=== PATIENT | female | born 1955 | race African-American/Black ===

== ENCOUNTER 2019-04-11 14:03 | Inpatient (IN) ==
[2019-04-11] MEDS ORDERED: SODIUM CHLORIDE 0.9% 1,000 ML IV STA (14:25)
[2019-04-11] MEDS ORDERED: ONDANSETRON 4 MG/2 ML VIAL IV STA (14:25)
[2019-04-11] MEDS ORDERED: HYDROmorphone 2 MG/1 ML VIAL IV STA (14:25)
[2019-04-11 14:48] LABS: Apearance,Urine CLEAR (Clear); Bilirubin,Urine Negative (Negative); Blood, Urine Negative (Negative); Glucose,Urine (UA) Negative (Negative); Ketones,Urine Negative (Negative); Nitrite,Urine Negative (Negative); Protein,Urine Negative; Squamous Epithelial Cell,Urine Occasional /HPF (0-10); Urine Color Yellow (Yellow); Urine Specific Gravity 1.017 (1.001-1.035); Urine Urobilinogen < 2.0 EU/DL (0.2-1.0); WBC,Urine <1 /HPF (0-6)
[2019-04-11 14:54] LABS: Barbiturates Screen,Urine Negative (Negative); Benzodiazepines Screen,Urine Negative (Negative); Cannabinoid Screen,Urine Negative (Negative); Opiate Screen,Urine Negative (Negative); Phencyclidine Screen,Urine Negative (Negative)
[2019-04-11 15:10] LABS: Albumin 3.4 G/DL (3.4-5.0); Bilirubin,Total 0.6 MG/DL (0.2-1.0); Calcium 8.9 MG/DL (8.5-10.1); Osmolality,Calculated 280.4 MOS/KG (273-304); Total Protein 7.3 G/DL (6.4-8.3)
[2019-04-11 15:16] LABS: Basophils % 0.2 % (0.0-0.8); Eosinophils % 0.3 % (0.00-10.9); Hematocrit 37.7 VOL% (35.7-47.0); Hemoglobin 13.2 GM/DL (12.0-16.0); Immature Granulocytes % 0.3 %; Immature Granulocytes Absolute 0.04 #; Lymphocytes # 1.9 10*3/uL (1.4-4.0); Mean Corpuscular Volume 85.1 FL (87-102); Mean Platelet Volume 10.2 FL (9.6-12.0); Monocytes % 1.9 % (1.7-12.7); NRBC # 0.03 10*3/uL; Neutrophils % 83.3 % (38.7-73.9); Platelet Count 289 T/CUMM (130-400); Red Blood Count 4.43 MC/CUMM (3.8-5.5); Red Cell Distribution Width 16.6 % (9.3-17.3); White Blood Count 13.8 T/CUMM (4-12)
[2019-04-11 15:22] LABS: PT Patient Result 10.5 SECS (9.6-12.2); Partial Thromboplastin Time < 21.0 SECS (20.8-36.0)
[2019-04-11] MEDS ORDERED: METOCLOPRAMIDE 10 MG/2 ML VIAL IV STA (16:02)
[2019-04-11] MEDS ORDERED: PANTOPRAZOLE 40 MG VIAL IV STA (16:03)
[2019-04-11] MEDS ORDERED: AMPICILLIN/SULBACTAM 3,000 MG in SODIUM CHLORIDE 0.9% 100 ML IV STA (17:04)
[2019-04-11] MEDS ORDERED: PIPERACILLIN/TAZOBACTAM 4,500 MG in SODIUM CHLORIDE 0.9% 100 ML IV STA ×2 (17:09→17:35)
[2019-04-11] MEDS ORDERED: fentaNYL 100 MCG/2 ML VIAL IV PRN (17:13)
[2019-04-11] MEDS ORDERED: hydrALAZINE 20 MG/1 ML VIAL IV PRN (17:13)
[2019-04-11] MEDS: PIPERACILLIN/TAZOBACTAM 3,375 MG in SODIUM CHLORIDE 0.9% 100 ML IV SCH (18:31)
[2019-04-11] MEDS: LACTATED RINGERS 1,000 ML IV SCH (18:36)
[2019-04-11] MEDS ORDERED: ACETAMINOPHEN 325 MG TABLET PO PRN (18:56)
[2019-04-11] MEDS: METOCLOPRAMIDE 10 MG/2 ML VIAL IV SCH ×2 (19:13→23:14)
[2019-04-11] MEDS: HYDROmorphone 2 MG/1 ML VIAL IV PRN (19:14)
[2019-04-11] MEDS: ONDANSETRON 4 MG/2 ML VIAL IV PRN (23:14)
[2019-04-12] MEDS: HYDROmorphone 2 MG/1 ML VIAL IV PRN ×3 (00:40→20:16)
[2019-04-12] MEDS: PIPERACILLIN/TAZOBACTAM 3,375 MG in SODIUM CHLORIDE 0.9% 100 ML IV SCH ×3 (00:42→23:21)
[2019-04-12] MEDS ORDERED: PROMETHAZINE INJ 25 MG in SODIUM CHLORIDE 0.9% 50 ML IV ONE (02:00)
[2019-04-12] MEDS: METOCLOPRAMIDE 10 MG/2 ML VIAL IV SCH ×3 (05:11→18:30)
[2019-04-12] MEDS ORDERED: ceFAZolin 1,000 MG in SYRINGE 1 EACH IV ONE (07:10)
[2019-04-12] MEDS ORDERED: TISSUE ADHESIVE 1 EACH APPLICATOR TOP ONE (08:44)
[2019-04-12] MEDS ORDERED: LIDOCAINE 1% 20 ML VIAL ONE (08:44)
[2019-04-12] MEDS ORDERED: LEVALBUTEROL 1.25 MG/3 ML NEB RESP TX ONE ×2 (11:33→11:47)
[2019-04-12] MEDS ORDERED: LIDOCAINE 2% 5 ML VIAL ONE ×2 (11:54→12:10)
[2019-04-12] MEDS ORDERED: DEXAMETHASONE 4 MG/1 ML VIAL ONE (11:54)
[2019-04-12] MEDS ORDERED: fentaNYL 100 MCG/2 ML VIAL ONE (11:54)
[2019-04-12] MEDS ORDERED: propofoL 200 MG/20 ML VIAL IV ONE (11:54)
[2019-04-12] MEDS ORDERED: MIDAZOLAM 2 MG/2 ML VIAL ONE (11:54)
[2019-04-12] MEDS ORDERED: DESFLURANE 1 UNIT/15 MINUTE INH ONE (11:54)
[2019-04-12] MEDS ORDERED: GLYCOPYRROLATE 0.4 MG/2 ML VIAL ONE (11:55)
[2019-04-12] MEDS ORDERED: NEOSTIGMINE 10 MG/10 ML VIAL ONE (11:55)
[2019-04-12] MEDS ORDERED: ONDANSETRON 4 MG/2 ML VIAL ONE (11:55)
[2019-04-12] MEDS ORDERED: ROCURONIUM 100 MG/10 ML VIAL IV ONE (11:55)
[2019-04-12] MEDS ORDERED: BUPIVACAINE MPF 0.5% /EPI 30 ML VIAL ONE (12:09)
[2019-04-12] MEDS: PANTOPRAZOLE 40 MG VIAL IV SCH (14:04)
[2019-04-13] MEDS: METOCLOPRAMIDE 10 MG/2 ML VIAL IV SCH ×5 (00:23→23:50)
[2019-04-13] MEDS: HYDROmorphone 2 MG/1 ML VIAL IV PRN ×3 (02:44→14:04)
[2019-04-13 04:42] LABS: Basophils % 0.1 % (0.0-0.8); Hematocrit 34.9 VOL% (35.7-47.0); Hemoglobin 11.9 GM/DL (12.0-16.0); Immature Granulocytes % 0.3 %; Immature Granulocytes Absolute 0.04 #; Lymphocytes # 1.1 10*3/uL (1.4-4.0); Lymphocytes % 9.7 % (21.3-54.2); Mean Corpuscular HGB Conc 34.1 GM/DL (32-36); Mean Platelet Volume 9.9 FL (9.6-12.0); Monocytes % 7.3 % (1.7-12.7); Neutrophils % 82.6 % (38.7-73.9); Platelet Count 266 T/CUMM (130-400); Red Blood Count 4.06 MC/CUMM (3.8-5.5); White Blood Count 11.7 T/CUMM (4-12)
[2019-04-13 05:10] LABS: Calcium 8.3 MG/DL (8.5-10.1); Osmolality,Calculated 281.3 MOS/KG (273-304)
[2019-04-13] MEDS: LACTATED RINGERS 1,000 ML IV SCH ×3 (05:30→08:47)
[2019-04-13] MEDS: PIPERACILLIN/TAZOBACTAM 3,375 MG in SODIUM CHLORIDE 0.9% 100 ML IV SCH ×3 (05:41→21:45)
[2019-04-13] MEDS: PANTOPRAZOLE 40 MG VIAL IV SCH (08:05)
[2019-04-13] MEDS: LISINOPRIL/HCTZ 10-12.5 MG TABLET PO SCH (08:05)
[2019-04-13] MEDS: ONDANSETRON 4 MG/2 ML VIAL IV PRN (18:05)
[2019-04-14] MEDS: HYDROmorphone 2 MG/1 ML VIAL IV PRN (02:24)
[2019-04-14] MEDS: METOCLOPRAMIDE 10 MG/2 ML VIAL IV SCH ×3 (05:32→18:42)
[2019-04-14] MEDS: PIPERACILLIN/TAZOBACTAM 3,375 MG in SODIUM CHLORIDE 0.9% 100 ML IV SCH ×3 (05:33→22:26)
[2019-04-14] MEDS: PANTOPRAZOLE 40 MG VIAL IV SCH (08:26)
[2019-04-14] MEDS: LISINOPRIL/HCTZ 10-12.5 MG TABLET PO SCH (08:26)
[2019-04-14] MEDS: LACTATED RINGERS 1,000 ML IV SCH (11:05)
[2019-04-15] MEDS: METOCLOPRAMIDE 10 MG/2 ML VIAL IV SCH ×5 (00:45→23:11)
[2019-04-15] MEDS: PIPERACILLIN/TAZOBACTAM 3,375 MG in SODIUM CHLORIDE 0.9% 100 ML IV SCH (05:15)
[2019-04-15 07:48] LABS: Basophils % 0.3 % (0.0-0.8); Eosinophils # 0.2 10*3/uL (0.0-0.87); Eosinophils % 2.1 % (0.00-10.9); Hematocrit 35.2 VOL% (35.7-47.0); Hemoglobin 12.6 GM/DL (12.0-16.0); Immature Granulocytes % 0.4 %; Immature Granulocytes Absolute 0.04 #; Lymphocytes # 1.7 10*3/uL (1.4-4.0); Lymphocytes % 17.2 % (21.3-54.2); Mean Corpuscular HGB Conc 35.8 GM/DL (32-36); Mean Corpuscular Volume 82.6 FL (87-102); Mean Platelet Volume 9.9 FL (9.6-12.0); Monocytes % 8.6 % (1.7-12.7); Neutrophils % 71.4 % (38.7-73.9); Platelet Count 242 T/CUMM (130-400); Red Blood Count 4.26 MC/CUMM (3.8-5.5); Red Cell Distribution Width 16.1 % (9.3-17.3); White Blood Count 9.8 T/CUMM (4-12)
[2019-04-15] MEDS: LISINOPRIL/HCTZ 10-12.5 MG TABLET PO SCH (09:18)
[2019-04-15] MEDS: PANTOPRAZOLE 40 MG VIAL IV SCH (09:20)
[2019-04-15] MEDS: ONDANSETRON 4 MG/2 ML VIAL IV PRN (09:24)
[2019-04-15] MEDS: HYDROmorphone 2 MG/1 ML VIAL IV PRN ×2 (11:26→23:14)
[2019-04-15] MEDS: LACTATED RINGERS 1,000 ML IV SCH (12:16)
[2019-04-16] MEDS: LACTATED RINGERS 1,000 ML IV SCH ×2 (01:48→03:05)
[2019-04-16] MEDS: METOCLOPRAMIDE 10 MG/2 ML VIAL IV SCH ×2 (06:17→12:17)
[2019-04-16] MEDS: LISINOPRIL/HCTZ 10-12.5 MG TABLET PO SCH (09:08)
[2019-04-16] MEDS: PANTOPRAZOLE 40 MG VIAL IV SCH (09:09)
[2019-04-16 11:19] VITALS: BP 139/80
== END 2019-04-16 14:52 | disposition home or self-care (01) | DRG 263 ==
LOC: EDBD → N.ED 14:03 → N.EDINP 14:03 → N.3E 18:07
PROVIDERS: ADMIT Student in an Organized Health Care Education/Training Program; ATTEND Student in an Organized Health Care Education/Training Program
PROC: LAPCHOL (2019-04-12 09:10)